=== PATIENT | male | born 2000 | race Caucasian/White ===

== ENCOUNTER 2018-05-16 09:23 | Day surgery (SDC) | payer OTHER, SELFPAY ==
[2018-05-16] MEDS ORDERED: Bupivacaine/Epinephrine 0.25% 30 ML VIAL ONE (12:08)
[2018-05-16] MEDS ORDERED: cefOXitin 2 GM VIAL ONE (12:38)
[2018-05-16] MEDS ORDERED: Sodium Chloride 0.9% 20 ML ONE (12:40)
[2018-05-16] MEDS ORDERED: Fentanyl 250 MCG/5 ML VIAL ONE (12:43)
[2018-05-16] MEDS ORDERED: PROPOFOL 200 MG/20 ML VIAL ONE (13:33)
[2018-05-16] MEDS ORDERED: Succinylcholine Chloride 20 MG/ML 10 ml SYRINGE FS ONE (13:33)
[2018-05-16] MEDS ORDERED: Ketorolac Tromethamine 30 MG/ML VIAL ONE (13:33)
[2018-05-16] MEDS ORDERED: Dexamethasone 20 MG/5 ML VIAL ONE (13:33)
[2018-05-16] MEDS ORDERED: Lidocaine 1% PF 5 ML VIAL ONE (13:33)
[2018-05-16] MEDS ORDERED: Ondansetron HCl/PF 4 MG/2 ML Vial ONE (13:33)
--- NOTE | 2018-05-16 13:48 | OP ---
PREOPERATIVE DIAGNOSIS: Acute appendicitis. SURGEON: Estevan Alberts M.D. PROCEDURE PERFORMED: Laparoscopic appendectomy. INDICATIONS: This is a 17-year-old male, who presents with 12-hour history of periumbilical pain, mi grating to the right lower quadrant associated with nausea. CT showed acute appendicitis. FINDINGS: Acute suppurative nonperforated appendicitis. PROCEDURE IN DETAIL: After informed consent was obtained, the patient was taken to the operating ileana m and given general endotracheal anesthesia. He was placed in the supine position. The abdomen was prepped and draped in usual fashion. Local anesthesia infiltrated subcutaneously and deep. A subumb ilical incision was performed. The subcu divided sharply. The fascia grasped and two stay sutures o f 0 Vicryl placed either side of midline. Midline incised. Digital palpation revealed no local adhe sions. A blunt 10/12 mm trocar inserted. Pneumoperitoneum was created to a pressure of 15 mmHg. Ze ro degree laparoscope inserted under direct vision, two 5 mm ports placed, one suprapubic and one rig ht lateral abdomen. The appendix was found. The mesoappendix divided with LigaSure. Base of the ap pendix divided with the linear 45 mm stapler. The appendix placed in an endosac and removed from the abdomen in an Endosac. Hemostasis was assured. The abdomen irrigated and irrigation fluid removed. Trocars and retractors removed. The fascia closed with interrupted 0 Vicryl suture. The skin clos ed with interrupted 4-0 Rapide. Dermabond applied. The patient tolerated the procedure well and was transferred to recovery in good condition. Sponge and needle count verified correct x2.
== END 2018-05-16 15:29 | disposition home or self-care (01) ==
LOC: SDC 09:23
PROVIDERS: ATTEND Surgery
PROC: 0DTJ4ZZ Resection of Appendix, Percutaneous Endoscopic Approach (ICD-10-PCS; principal; 2018-05-16)
DX: K35.80 Unspecified acute appendicitis (principal)
CPT/HCPCS: 88304; J0694; J1100; J1885; J2001; J2405; J2704; J3010

== ENCOUNTER 2020-01-20 22:07 | Emergency (ER) | payer OTHER ==
[2020-01-21 14:07] LABS: SARS-CoV-2 MS2 Positive; SARS-CoV-2 N Gene Positive; SARS-CoV-2 S Gene Positive; SARS-CoV-2 orf1ab Positive
== END 2020-01-20 23:35 | disposition home or self-care (01) ==
LOC: ERS 22:07
DX: U07.1 COVID-19 (principal); R50.9 Fever, unspecified
CPT/HCPCS: 87635; 99283; U0003

== ENCOUNTER 2020-02-05 17:11 | Emergency (ER) | payer OTHER ==
[2020-02-06 16:19] LABS: SARS-CoV-2 MS2 Positive; SARS-CoV-2 N Gene Positive; SARS-CoV-2 S Gene Negative; SARS-CoV-2 orf1ab Positive
== END 2020-02-05 17:38 | disposition home or self-care (01) ==
LOC: ERS 17:11
DX: U07.1 COVID-19 (principal)
CPT/HCPCS: 87635; 99282; U0003